=== PATIENT | male | born 1985 | race Caucasian/White ===

== ENCOUNTER 2022-06-18 12:28 | Emergency (ER) | payer SELFPAY ==
[~2022-06-18] VITALS: Ht 182.9 cm; Wt 86.2 kg
--- NOTE | 2022-06-18 12:28 | NUR ---
Heron WILSON to chair Ferrari
[2022-06-18 12:42] VITALS: BP 140/87
[2022-06-18] MEDS ORDERED: PIPERACILLIN/TAZOBACTAM 2.25 GM in DEXTROSE 5% 50 ML IV ONE (12:55)
--- NOTE | 2022-06-18 13:05 | NUR ---
TAKEN TO XRAY VIA W/C, [employer] OFFICER ACCOMPANIED [employer] EXPORT CLERK
--- NOTE | 2022-06-18 13:06 | NUR ---
37Y.O M [employer] C/O L ELBOW PAIN. 08/17 PAIN. AREA RED AND SWOLLEN. ACCORDING TO PD PT HAS SWELLING PRIOR TO THEM DETAINING THE PT. A&OX4, SKIN INTACT EXCEPT L ELBOW REDNESS AND SWELLING, STEADY GAIT, AND VITALS WNL. NKA
--- NOTE | 2022-06-18 13:11 | NUR ---
Pt moved to bed 10.
--- NOTE | 2022-06-18 13:21 | NUR ---
DR ROWE AT BEDSIDE EVALUATING PT
[2022-06-18] MEDS ORDERED: PIPERACILLIN/TAZOBACTAM 2.25 GM VIAL IV ONE (13:26)
[2022-06-18] MEDS ORDERED: LIDOCAINE MPF 1% 10 MG/ML VIAL IM ONE (13:35)
[2022-06-18 13:36] LABS: BASOPHILS # (AUTO) 0.1 K/uL (0.00-0.22); BASOPHILS % (AUTO) 0.5 % (0.0-2.0); EOSINOPHILS # (AUTO) 0.2 K/uL (0-0.4); EOSINOPHILS % (AUTO) 1.9 % (0.0-4.0); HEMATOCRIT 42.5 % (36-52); HEMOGLOBIN 14.3 g/dL (12.0-18.0); LYMPHOCYTES # (AUTO) 1.9 K/uL (2.0-11.5); LYMPHOCYTES % (AUTO) 15.3 % (20.5-51.1); MEAN CORPUSCULAR HEMOGLOBIN 28 pg (27-31); MEAN CORPUSCULAR HGB CONC 34 g/dL (33-37); MEAN CORPUSCULAR VOLUME 83.9 fL (80-94); MONOCYTES # (AUTO) 1.1 K/uL (0.8-1.0); MONOCYTES % (AUTO) 8.8 % (1.7-9.3); NEUTROPHILS % (AUTO) 73.5 % (42.2-75.2); PLATELET COUNT (AUTO) 279 K/uL (140-450); RED BLOOD CELL COUNT(AUTO) 5.07 MIL/uL (4.20-6.10); RED CELL DISTRIBUTION WIDTH 13.7 % (11.6-13.7); WHITE BLOOD COUNT (AUTO) 12.2 K/uL (4.8-10.8)
[2022-06-18 14:20] LABS: ANION GAP 12.8 (8-16); CARBON DIOXIDE 26.1 mmol/L (21-32); POTASSIUM 3.9 mmol/L (3.5-5.1)
[2022-06-18 14:21] LABS: ALBUMIN 3.5 g/dL (3.4-5.0); TOTAL BILIRUBIN 0.6 mg/dL (0.0-1.0)
[2022-06-18 16:46] LABS: APPEARANCE,SPUN,BODY FLUID CLEAR (CLEAR); APPEARANCE,UNSPUN,BODY FLUID BLOODY (CLEAR); COLOR,BODY FLUID PINK (LT YELLOW); POLYNUCLEAR, BODY FLUID 0 %; RBC, BODY FLUID 70000 /cu. mm.; SPECIMENTYPE,BODY FLUID ELBOW; TOTAL VOLUME,BODY FLUID 1 mL; WBC, BODY FLUID 0 /cu. mm.
[2022-06-18] MEDS ORDERED: SULF-59 PO (17:03)
--- NOTE | 2022-06-18 17:48 | NUR ---
IV removed, catheter intact and site benign. Applied folded 4x4 gauze and tape to stop bleeding.
[2022-06-18 17:50] VITALS: BP 123/75
--- NOTE | 2022-06-18 17:50 | NUR ---
Patient discharged with v/s stable. Written and verbal after care instructions ABOUT CELLULITIS AND RADIAL HEAD FRACTURE given and explained. Patient alert, oriented and verbalized understanding of instructions. Ambulatory with steady gait. All questions addressed prior to discharge. ID band removed. Patient advised to follow up with PMD. Rx of BACTRIM DS given. Patient educated on indication of medication including possible reaction and side effects. Opportunity to ask questions provided and answered.
== END 2022-06-18 17:50 | disposition home or self-care (01) ==
LOC: MED 12:28
DX: L03.114 Cellulitis of left upper limb (principal); D72.829 Elevated white blood cell count, unspecified; R79.82 Elevated C-reactive protein (CRP)
CPT/HCPCS: 20605; 36415; 73080; 80053; 83605; 85025; 85651; 86140; 87205; 89051; 96365; 99284; J2001; J2543

== ENCOUNTER 2023-07-12 22:43 | Emergency (ER) | payer MEDICAID ==
[~2023-07-12] VITALS: Ht 182.9 cm; Wt 86.2 kg
[2023-07-12 22:43] VITALS: BP 134/68; PULSE 92; RESP 18; TEMP 97.4; O2SAT 98
[~2023-07-12 22:43] MED LIST: SULF-59 PO
[2023-07-12] MEDS ORDERED: ACETAMINOPHEN EXTRA STRENGTH 500 MG TAB PO ONE (23:00)
== END 2023-07-12 23:22 ==
LOC: MED 22:43
DX: M25.512 Pain in left shoulder (principal); G89.29 Other chronic pain; Z02.89 Encounter for other administrative examinations; Z79.899 Other long term (current) drug therapy
CPT/HCPCS: 99283